=== PATIENT | male | born 1960 | race Hispanic/Latino ===

== ENCOUNTER 2017-09-15 13:41 | Emergency (ER) | payer SELFPAY ==
[2017-09-15] MEDS ORDERED: Adacel (T-DAP) 0.5 ML VIAL ONE (14:10)
[2017-09-15] MEDS ORDERED: Lidocaine 1% (PF) 30 ML VIAL ONE (14:10)
[2017-09-15] MEDS ORDERED: Bacitracin Zinc 1 Packet ONE (14:10)
== END 2017-09-15 14:55 | disposition home or self-care (01) ==
LOC: ERS 13:41
DX: L03.221 Cellulitis of neck (principal); L02.11 Cutaneous abscess of neck; F17.220 Nicotine dependence, chewing tobacco, uncomplicated; Z71.6 Tobacco abuse counseling; Z23 Encounter for immunization
CPT/HCPCS: 10060; 87070; 87077; 87186; 87205; 90471; 90715; 99406; J2001

== ENCOUNTER 2017-09-17 10:57 | Emergency (ER) | payer SELFPAY ==
[2017-09-17] MEDS ORDERED: Bacitracin Zinc 1 Packet ONE (11:43)
== END 2017-09-17 12:34 | disposition home or self-care (01) ==
LOC: ERS 10:57
DX: Z48.817 Encounter for surgical aftercare following surgery on the skin and subcutaneous tissue (principal); F17.220 Nicotine dependence, chewing tobacco, uncomplicated
CPT/HCPCS: 99282

== ENCOUNTER 2017-09-21 17:16 | Emergency (ER) | payer SELFPAY ==
[2017-09-21] MEDS ORDERED: Bacitracin Zinc 1 Packet ONE (17:53)
== END 2017-09-21 17:58 | disposition home or self-care (01) ==
LOC: ERS 17:16
DX: Z48.817 Encounter for surgical aftercare following surgery on the skin and subcutaneous tissue (principal); L02.11 Cutaneous abscess of neck; F17.220 Nicotine dependence, chewing tobacco, uncomplicated
CPT/HCPCS: 99406

== ENCOUNTER 2020-07-14 13:22 | Emergency (ER) | payer SELFPAY ==
[2020-07-14 13:44] LABS: Bacteria/HPF None Seen HPF (None Seen); Bilirubin Negative (Negative); Blood, Urine 2+ (Negative); Clarity Clear (Clear); Glucose, Urine (Dipstick) Normal (Negative); Ketone, Urine Negative (Negative); Leukocyte Negative Leu/uL (Negative); Nitrite Negative (Negative); Protein, Urine (Dipstick) 30 mg/dL (Neg-Trace); Specific Gravity, Urine 1.022 (1.002-1.036); Squamous Epithelial None Seen HPF (0-3); Urobilinogen Normal mg/dL (Less than 2); WBC/HPF 0-3 HPF (0-3); pH, Urine 5.5 (5.0-9.0)
[2020-07-14 14:58] LABS: Hemoglobin 16.9 g/dL (14.0-18.0); Mean Corpuscular Hemoglobin 30.1 pg (27.0-31.0); Mean Corpuscular Volume 91.1 fL (78.0-98.0); Mean Platelet Volume 9.3 fL (7.4-10.4); Platelet Count 157 thou/uL (130-400); RBC Distribution Width 13.7 % (11.5-14.5); Red Blood Cell (RBC) Count 5.61 mill/uL (4.70-6.10); White Blood Cell (WBC) Count 8.3 thou/uL (4.8-10.8)
[2020-07-14 14:59] LABS: #Eosinphils 0.1 thou/uL (0.0-0.7); #Lymphocytes 1.3 thou/uL (1.20-3.40); #Monocytes 0.6 thou/uL (0.11-0.59); #Neutrophils 6.2 thou/uL (1.40-6.50); %Basophils 0.5 % (0.0-1.0); %Eosinophils 1.5 % (0.0-10.0); %Lymphocytes 15.8 % (21.0-51.0); %Neutrophils 75.3 % (42.0-75.0)
[2020-07-14 15:33] LABS: ALT (SGPT) 31 U/L (8-55); AST (SGOT) 18 U/L (5-34); Albumin 4.2 g/dL (3.5-5.0); Alkaline Phosphatase 103 U/L (40-110); Anion Gap 14 mmol/L (10-20); BUN (Urea Nitrogen) 14 mg/dL (8.4-25.7); Bilirubin, Total 0.7 mg/dL (0.2-1.2); Calc. Creatinine Clearance 0 mL/min (70-130); Calcium 8.9 mg/dL (7.8-10.44); Carbon Dioxide 23 mmol/L (22-29); Chloride 107 mmol/L (98-107); Globulin 3.4 g/dL (2.4-3.5); Glucose 118 mg/dL (70-105); Lipase 38 U/L (8-78); Potassium 3.8 mmol/L (3.5-5.1); Protein, Total 7.6 g/dL (6.0-8.3); Sodium 140 mmol/L (136-145)
== END 2020-07-14 23:23 ==
LOC: ERS 13:22
DX: Z53.21 Procedure and treatment not carried out due to patient leaving prior to being seen by health care provider (principal)
CPT/HCPCS: 36415; 80053; 81003; 81015; 83690; 85025

== ENCOUNTER 2022-11-11 17:52 | Emergency (ER) | payer SELFPAY ==
[2022-11-11] MEDS ORDERED: diphenhydrAMINE 50 MG/ML VIAL ONE (19:33)
[2022-11-11] MEDS ORDERED: Dexameth. Sod Phosp. 10 MG/ML (CHEMO USE ONLY) ONE (19:33)
== END 2022-11-11 20:10 | disposition home or self-care (01) ==
LOC: ERS 17:52
DX: L29.9 Pruritus, unspecified (principal); F17.220 Nicotine dependence, chewing tobacco, uncomplicated
CPT/HCPCS: 96372; 99282; J1100; J1200